=== PATIENT | female | born 1960 | race Two or more races ===

== ENCOUNTER 2024-10-27 23:01 | Emergency (ER) | payer MEDICARE, MEDICAID, SELFPAY ==
[2024-10-27 23:04] VITALS: BMI 26.0
[2024-10-27 23:15] VITALS: BP 182/78; PULSE 79; RESP 17; TEMP 36.8; O2SAT 98
--- NOTE | 2024-10-27 23:41 | XR_ITS ---
Examination: PA chest single view FINDINGS: Upright PA chest single view Exam done: October 27, 2024, 11:53 PM Comparison December 06, 2023 INDICATIONS: Chest pain shortness of breath today. FINDINGS: Normal heart size. Lungs are clear. The osseous structures are intact IMPRESSION: No active disease
--- NOTE | 2024-10-27 23:41 | EKG_ITS ---
[facility] Test Date: 2024-10-27 Pat Name: GILL AGUILAR Department: Room: - Gender: Female Per Diem Clerk: : 1960 Requested By: Zain Price Order Number: [id number] Reading MD: Zain Price Measurements Intervals [place] Rate: 72 P: 62 CT: 147 QRS: -33 QRSD: 102 T: 78 QT: 385 QTc: 423 Interpretive Statements SINUS RHYTHM LEFT AXIS DEVIATION [QRS AXIS < -30] LOW QRS VOLTAGE IN PRECORDIAL LEADS [QRS DEFLECTION < 1.0 mV IN CHEST LEADS] PATTERN CONSISTENT WITH PULMONARY DISEASE NONSPECIFIC ST & T-WAVE ABNORMALITY Compared to ECG 12/06/2023 08:03:35 Left-axis deviation now present Low QRS voltage now present T-wave abnormality now present /store/S0/[id number]/ecg/[id number].pdf
--- NOTE | 2024-10-27 23:41 | XR_ITS ---
Examination: CT brain head without contrast. 2-D sagittal coronal reconstructions Date and time of exam:October 27, 2024 11:55 PM INDICATIONS: Headaches beginning one week ago CTDI: vol (mGy):45 DLP: (mGycm):861 Technique: Multiple CT axial sections of the brain have been obtained, 5 mm slice thickness. Contrast has not been administered. 2-D sagittal, coronal reconstructions have been obtained Low dose protocols were performed. One or more of the following dose reduction techniques were used; automated exposure control, adjustment of the mA and/or KV according to patient size, use of iterative reconstruction technique. Findings: No significant ventricular enlargement. Intra-axial or extra-axial hemorrhage density is not seen. No mass effect or midline shift Basal cisterns are not remarkable. Fourth ventricle is midline. Cranial vault intact. Impression: Negative for acute hemorrhage, mass effect or midline shift Advise clinical correlation and follow up accordingly
--- NOTE | 2024-10-27 23:42 | EDRME_ITS ---
Rapid Medical Screening Exam [facility] Arrival date/time: 10/27/24 23:01 64F with history of HTN, HLD and DM presents to ED with 1 week of SHORT and dizziness. There's also 1 day of N/V and CP. Patient denies URI symptoms. Chief Complaint: General Adult/Misc Complain Vital signs: Vital Signs Temperature 98.2 F 10/27/24 23:15 Pulse Rate 79 10/27/24 23:15 Respiratory Rate 17 10/27/24 23:15 Blood Pressure 182/78 H 10/27/24 23:15 Pulse Oximetry (%) 98 10/27/24 23:15 Oxygen Delivery Method Room Air 10/27/24 23:15
[2024-10-27] MEDS: METOCLOPRAMIDE 5 MG TABLET 10 MG PO (23:55)
[2024-10-28 00:53] LABS: Basophils % (Auto) 0 % (0-2.5); Eosinophils # (Auto) 0.1 Thou/mm3 (0.0-0.5); Eosinophils % (Auto) 1 % (0-10); Hematocrit 36.6 % (36.0-46.0); Hemoglobin 12.7 g/dL (12.0-16.0); Immature Granulocytes % (Auto) 0 % (0-0); Immature Granulocytes Auto 0.02 Thou/mm3 (0.00-0.00); Lymphocytes # (Auto) 2.8 Thou/mm3 (1.0-4.8); Lymphocytes % (Auto) 31 % (10-50); Mean Corpuscular HGB Conc 34.7 g/dl (31.0-37.0); Mean Corpuscular Hemoglobin 29.8 pg (25.0-35.0); Mean Corpuscular Volume 86 fL (80-100); Monocytes # (Auto) 0.6 Thou/mm3 (0.0-0.8); Monocytes % (Auto) 6 % (0-12); Neutrophils # (Auto) 5.5 Thou/mm3 (1.8-7.7); Neutrophils % (Auto) 61 % (37-80); Nucleated Red Blood Cell % 0 /100 WBC (0); Platelet Count 221 Thou/mm3 (140-440); RDW Standard Deviation 41.1 fL (36.4-46.3); Red Blood Count 4.26 Miln/mm3 (4.00-5.20)
[2024-10-28 01:19] LABS: Alanine Aminotransferase 20 U/L (10-49); Albumin, Serum 4.8 gm/dL (3.4-4.8); Albumin/Globulin Ratio 1.4 (1.2-2.2); Alkaline Phosphatase 106 U/L (46-116); Anion Gap 9 (7-16); Aspartate Amino Transferase 19 U/L (0-34); BUN/Creatinine Ratio 22 Ratio (12-20); Bilirubin,Total 0.5 mg/dL (0.3-1.2); Blood Urea Nitrogen 26 mg/dL (9-23); Calcium 10.6 mg/dL (8.3-10.6); Calcium (Corrected) 10.6 mg/dL (8.5-10.1); Carbon Dioxide 27.6 mMol/L (20.0-31.0); Chloride 104 mMol/L (98-107); Creatinine (Component) 1.2 mg/dL (0.6-1.3); Estimated Creatinine Clearance 39.1 mL/min (>60); Globulin 3.4 gm/dL (2.3-3.5); Glucose 134 mg/dL (74-106); Osmolality,Calculated 287 (275-295); Potassium 4.6 mMol/L (3.4-5.1); Sodium 141 mMol/L (136-145); Total Protein 8.2 gm/dL (5.7-8.2); Troponin I < 0.002 ng/mL (0.0-0.045); eGFR 50 See Note
--- NOTE | 2024-10-28 01:55 | EDNOTE_ITS ---
ED General RME/HPI General Chief complaint: General Adult/Misc Complain Stated complaint: HEADACHE, NAUSEA Time Seen by Provider: 10/28/24 00:11 Arrival date/time: 10/27/24 23:01 Limitations: no limitations RME / HPI RME / HPI narrative: 10/27/24 23:01 64F with history of HTN, HLD and DM presents to ED with 1 week of SHORT and dizziness. There's also 1 day of N/V and CP. Patient denies URI symptoms. -------- Dr. Carpenter's Main ED Evaluation: 64yo female with a history of DM, HTN, HLD presents to the ED for complaints of headache and dizziness. Patient states she's had intermittent dizziness and a headache for the last one week, reporting she was concerned after she felt nauseated and lightheaded today, so she came in for evaluation. She denies any vomiting, diarrhea, cough, chest pain, shortness of breath or any other associated symptoms. She has been compliant with all her medications. She has not taken anything at home for her headache. Related Data Home Medications ?Medication ?Instructions ?Recorded ?Confirmed amlodipine 5 mg tablet 5 mg PO QDAY 07/08/23 lisinopril 40 mg tablet 40 mg PO QDAY 07/08/2307/08 sitagliptin phosphate 50 1 tab PO BID 07/08/23 mg-metformin 1,000 mg tablet (Janumet) Previous Rx's ?Medication ?Instructions ?Recorded dicyclomine 20 mg tablet 20 mg PO BID #30 tabs Allergies Allergy/AdvReac Type Severity Reaction Status Date / Time No Known Allergies Allergy Verified 07/08/23 07:54 Review of Systems Review of Systems Systems Reviewed: All systems reviewed, normal except as documented Past Medical History Past Medical History NEUROLOGIC: Negative Neurological Disorders or Seizures CARDIAC: Positive Hypercholesterolemia (CONTROLLED. NO MEDS) and Hypertension; Negative Cardiac Disorders or Congestive Heart Failure RESPIRATORY: Negative Chronic Obstructive Pulmonary Disease (COPD) or Asthma GASTROINTESTINAL: Negative Gastrointestinal Disorders GENITOURINARY: Negative Genitourinary Disorders or Renal Disease REPRODUCTIVE: Positive Previous Pregnancies MUSCULOSKELETAL: Negative Musculoskeletal Disorders ENDOCRINE: Positive Endocrine Disorders and Diabetes Mellitus Type 2; Negative Diabetes Mellitus Type 1 HEMATOLOGIC: Negative Blood Disorders or Sickle Cell Disease OTHER HISTORY: Negative Falls, Blood Transfusions, Anesthesia Reactions, MRSA, Chicken Pox, Measles, Mumps or Cancer Family History FAMILY HISTORY: Positive Family Cardiac Disorders (PARENTS, BROTHER - HTN); Negative Family Anesthesia Reaction Surgical History SURGICAL: Positive Tubal Ligation Social History SMOKING STATUS: Never smoker ED Exam General Limitations: Present no limitations General appearance: Present alert and in no apparent distress Head Head exam: Present atraumatic Eye Eye exam: Present normal appearance, PERRL and EOMI ENT ENT exam: Present normal exam, normal oropharynx and mucous membranes moist Neck Neck exam: Present normal inspection, full ROM and trachea midline Chest Chest inspection: Present normal inspection and symmetric chest wall rise Respiratory Respiratory exam: Present normal lung sounds bilaterally Cardiovascular Cardiovascular exam: Present regular rate, normal rhythm and normal heart sounds Abdominal Exam Abdominal exam: Present soft and normal bowel sounds Extremities Exam Extremities exam: Present normal inspection and full ROM Back Exam Back exam: Present normal inspection and full ROM Neurological Exam Neurological exam: Present alert, oriented X3 and CN II-XII intact Psychiatric Psychiatric exam: Present normal affect and normal mood Skin Skin exam: Present warm, dry, intact and normal color Course Course Course Narrative: CXR is ordered for determining the etiology of chest pain per PA Price. Quality Measures none Orders Category Date Time Status EKG (ED ONLY) *Do not use* NOW Care 10/27/24 23:[address] head/brain wo con Stat Exams 10/27/24 23:41 Completed EKG (ED Only) Stat Exams 10/27/24 23:41 Draft XR chest 1V portable Stat Exams 10/27/24 23:41 Completed CBC Stat Lab 10/27/24 23:41 Completed Comprehensive Metabolic Panel Stat Lab 10/27/24 23:41 Completed Troponin I Stat Lab 10/27/24 23:41 Completed Acetaminophen Tab [Tylenol Tab] Med 10/28/24 01:59 Discontinued 650 mg PO X1 ONE Metoclopramide [Reglan] Med 10/27/24 23:41 Discontinued 10 mg PO X1 ONE Vital Signs Vital signs: Vital Signs Temperature 98.2 F 10/27/24 23:15 Pulse Rate 79 10/27/24 23:15 Respiratory Rate 17 10/27/24 23:15 Blood Pressure 182/78 H 10/27/24 23:15 Pulse Oximetry (%) 98 10/27/24 23:15 Oxygen Delivery Method Room Air 10/27/24 23:15 [facility] Patient data External records reviewed:: [facility] previous records (Per chart review, patient was seen here on 12/06/23 for enteritis.) Clinical information provided by:: patient Social determinants that could affect healthcare access:: none Patient has the following chronic illnesses:: DM, HTN, HLD How is presenting disease/condition affected by chronic disease/condition?: u neffected by Evaluation data The following diagnostics were reviewed and interpreted by me:: lab results, radiology exam(s) and EKG tracing(s) Lab and/or radiology exams considered but not ordered:: none Interpretation Summary: [facility] Report Signed Patient: GILL AGUILAR. Record#: [id number] Birthdate: 1960 Age/Sex: 64 / F Location: [facility] Attending Dr: Ordering Physician: Zain Price PA-C Date of Service: 10/27/24 Procedure(s): XR chest 1V portable Accession Number(s): [id number] cc: Sukhi Butt MD; Zain Price PA-C~ Examination: PA chest single view FINDINGS: Upright PA chest single view Exam done: October 27, 2024, 11:53 PM Comparison December 06, 2023 INDICATIONS: Chest pain shortness of breath today. FINDINGS: Normal heart size. Lungs are clear. The osseous structures are intact IMPRESSION: No active disease Dictated By: Sukhi Butt MD Signed By: <Electronically signed by Sukhi Butt MD in [place]> 10/28/24 0011 [facility] Report Signed Patient: GILL AGUILAR. Record#: [id number] Birthdate: 1960 Age/Sex: 64 / F Location: [facility] Attending Dr: Ordering Physician: Zain Price PA-C Date of Service: 10/27/24 Procedure(s): CT head/brain wo con Accession Number(s): [id number] cc: Sukhi Butt MD; Zain Price PA-C~ Examination: CT brain head without contrast. 2-D sagittal coronal reconstructions Date and time of exam:October 27, 2024 11:55 PM INDICATIONS: Headaches beginning one week ago CTDI: vol (mGy):45 DLP: (mGycm):861 Technique: Multiple CT axial sections of the brain have been obtained, 5 mm slice thickness. Contrast has not been administered. 2-D sagittal, coronal reconstructions have been obtained Low dose protocols were performed. One or more of the following dose reduction techniques were used; automated exposure control, adjustment of the mA and/or KV according to patient size, use of iterative reconstruction technique. Findings: No significant ventricular enlargement. Intra-axial or extra-axial hemorrhage density is not seen. No mass effect or midline shift Basal cisterns are not remarkable. Fourth ventricle is midline. Cranial vault intact. Impression: Negative for acute hemorrhage, mass effect or midline shift Advise clinical correlation and follow up accordingly Dictated By: Sukhi Butt MD Signed By: <Electronically signed by Sukhi Butt MD in [place]> 10/28/24 0009 Medications Medications considered but not ordered:: none Medication administrations:: Medication Administration History Discontinued Medications Acetaminophen (Acetaminophen 325 Mg Tablet) 650 mg PO X1 ONE Stop: 10/28/24 02:00 Last Admin: 10/28/24 03:38 Dose: 650 mg Documented By: JESSICA Metoclopramide HCl (Metoclopramide 5 Mg Tablet) 10 mg PO X1 ONE Stop: 10/27/24 23:42 Last Admin: 10/27/24 23:55 Dose: 10 mg Documented By: KANE see above Consultations Consultation(s) initiated? (list below): No Diagnosis Differential Diagnosis ED Complaint MDM: electrolyte abnormality, dehydration, worsening hypertension Most likely diagnosis given after review of the tests above:: see clinical impression below Admission Indicated Admission indicated?: not indicated Explain why admission is indicated or not indicated:: No criteria for admission. Admission Request Was there a request for admission?: No Disposition Plan Disposition Plan: Discharge Discharge Attestation Discharge Attestation: The patient and all family members were given an opportunity to ask questions and understood the discharge instructions. Discharge instructions specifically effects, indications for sooner follow up or return to the emergency department, and the expected course of current diagnosis. Patient condition: Stable Medical Decision Making MDM Narrative MDM Narrative: 64-year-old female with history of hypertension and diabetes coming in with 2- week history of intermittent headache. The patient states that she is seen her primary care previously for elevated blood pressure and recently it has been in the 140s. The patient states today she came in because she was feeling lightheaded. No chest pain or shortness of breath. Otherwise no weakness or numbness. While in the emergency department the patient had an EKG does not show any ST elevations or depressions. It looks similar to her previous EKG with some nonspecific T wave changes. Since the patient's not having chest pain at this time I do not suspect that there is ischemia. BUN slightly elevated but creatinine is normal. Urine creatinine ratio was 22 which may indicate slight dehydration. The patient is not having any UTI symptoms and otherwise LFTs are normal. Troponin is negative x 1. CT scan shows no evidence of mass or abnormality. Patient is given Tylenol p.o. Differential diagnosis includes electro abnormality, mild dehydration, worsening of her hypertension, doubt mass or stroke at this time. Patient will continue her medications at home. Return precautions given understood. Differential Diagnosis Differential Diagnosis: electrolyte abnormality, dehydration, worsening hypertension Lab Data 10/28/24 00:19 10/28/24 00:19 Labs: Lab Results 10/28/24 Range/Units 00:19 WBC 9.0 (3.6-11.0) Thou/mm3 RBC 4.26 (4.00-5.20) Miln/mm3 Hgb 12.7 (12.0-16.0) g/dL Hct 36.6 (36.0-46.0) % MCV 86 (80-100) fL MCH 29.8 (25.0-35.0) pg MCHC 34.7 (31.0-37.0) g/dl RDW Std Deviation 41.1 (36.4-46.3) fL Plt Count 221 (140-440) Thou/mm3 Neut % (Auto) 61 (37-80) % Lymph % (Auto) 31 (10-50) % [place] % (Auto) 6 (0-12) % Eos % (Auto) 1 (0-10) % Baso % (Auto) 0 (0-2.5) % Neut # (Auto) 5.5 (1.8-7.7) Thou/mm3 Lymph # (Auto) 2.8 (1.0-4.8) Thou/mm3 [place] # (Auto) 0.6 (0.0-0.8) Thou/mm3 Eos # (Auto) 0.1 (0.0-0.5) Thou/mm3 Baso # (Auto) 0.0 (0.0-0.2) Thou/mm3 Immature Gran # (Auto) 0.02 H (0.00-0.00) Thou/mm3 Absolute Nucleated RBC 0.00 (0.00-0.00) Thou/mm3 Immature Gran % 0 (0-0) % Nucleated RBC % 0 (0) /100 WBC Sodium 141 (136-145) mMol/L Potassium 4.6 (3.4-5.1) mMol/L Chloride 104 (98-107) mMol/L Carbon Dioxide 27.6 (20.0-31.0) mMol/L Anion Gap 9 (7-16) BUN 26 H (9-23) mg/dL Creatinine 1.2 (0.6-1.3) mg/dL Estim Creat Clear Calc 39.1 L (>60) mL/min eGFR 50 L (60 - ) See Note BUN/Creatinine Ratio 22 H (12-20) Ratio Glucose 134 H (74-106) mg/dL Calculated Osmolality 287 (275-295) Calcium 10.6 (8.3-10.6) mg/dL Corrected Calcium 10.6 H (8.5-10.1) mg/dL Total Bilirubin 0.5 (0.3-1.2) mg/dL AST 19 (0-34) U/L ALT 20 (10-49) U/L Alkaline Phosphatase 106 (46-116) U/L Troponin I < 0.002 (0.0-0.045) ng/mL Total Protein 8.2 (5.7-8.2) gm/dL Albumin 4.8 (3.4-4.8) gm/dL Globulin 3.4 (2.3-3.5) gm/dL Albumin/Globulin Ratio 1.4 (1.2-2.2) Discharge Plan Plan Patient Disposition: HOME (Self Care) Patient condition on transfer: Stable Prescriptions/Referrals Prescriptions/Med Rec: No Action amlodipine 5 mg tablet 5 mg PO QDAY Janumet 50-1,000 mg tablet 1 tab PO BID lisinopril 40 mg tablet 40 mg PO QDAY dicyclomine 20 mg tablet 20 mg PO BID Qty: 30 0RF Referrals: Gill Wilde, [employer] DISCLOSURE ACT SPECIALIST-C [Primary Care Provider] - In 1 week Problem List Clinical Impression: Headache Patient/Caregiver Discharge Instructions Print Language: Austrian Stand Alone Forms: [facility] Award Info., Patient Portal Info Letter
[2024-10-28 02:11] VITALS: BP 152/87; PULSE 71; RESP 17; TEMP 36.7; O2SAT 97
[2024-10-28] MEDS: ACETAMINOPHEN 325 MG TABLET 650 MG PO (03:38)
== END 2024-10-28 04:40 | disposition home or self-care (01) ==
PROVIDERS: Physician Assistant; Emergency Provider Emergency Medicine; PCP Nurse Practitioner Family
DX: R51.9 Headache, unspecified (principal); R07.9 Chest pain, unspecified; R06.02 Shortness of breath; R94.31 Abnormal electrocardiogram [ECG] [EKG]; I10 Essential (primary) hypertension
CPT/HCPCS: 36415; 70450; 71045; 80053; 84484; 85025; 93005; 99284; A9270

== ENCOUNTER → 2025-01-25 | Outpatient (CLI) | payer MEDICARE, MEDICAID, SELFPAY ==
--- NOTE | 2025-01-25 09:00 | XR_ITS ---
Examination: Screening digital mammography, bilateral Computer aided detection 3-D breast Tomosynthesis, bilateral Date and time of exam: January 25, 2025 0919 hours Compared to mammograms dated to November 05, 2021 Indication: Screening Technique: Nonmagnified MLO, CC views of the breasts to been obtained, reconstructed from 3-D Tomosynthesis images. R2 computer aided detection program utilized for evaluation of suspicious masses and/or abnormal calcifications. 3-D Tomosynthesis images obtained. Findings: Scattered areas of fibroglandular density. Benign calcifications. No interval suspicious masses Impression: BI-RADS category II: Benign Findings. Recommend 1 year follow-up mammogram.
== END | disposition home or self-care (01) ==
PROVIDERS: PCP Nurse Practitioner Family; Referring Provider Nurse Practitioner Family; Visit Provider Nurse Practitioner Family
DX: Z12.31 Encounter for screening mammogram for malignant neoplasm of breast (principal); R92.323 Mammographic fibroglandular density, bilateral breasts; R92.1 Mammographic calcification found on diagnostic imaging of breast
CPT/HCPCS: 77063; 77067